=== PATIENT | male | born 1935 | race Caucasian/White ===

== ENCOUNTER 2020-03-05 14:20 | Emergency (ER) | payer OTHER, BC ==
--- NOTE | 2020-03-05 14:28 | PDOC ---
History of Present Illness - History of Present Illness Initial Comments: 84 Y/O male h/o neuropathy, htn, bph, presents to ED for shoulder pain 2/2 mechanical fall last night. Patient reports that last night he was at baseball game, walking down bleachers, when he "lost his footing" and fell, breaking his fall with his left shoulder. He reports that his pain is primarily located in his left shoulder, and he is unable to lift left arm over his head. He denies feeling light headed or dizzy prior to the fall, denies LOC, or hitting head. Reports that he has had two similar falls on these same bleachers over the past year. Denies chest pain, shortness of breath, N/V/D, fever, chills or recent sick contacts. Reports that he tested positive for COVID-19 in september but his symptoms hace since resolved. <Eric Ellsworth - Last Filed: 03/05/20 20:46> <Norman Ray - Last Filed: 03/06/20 10:56> - General Chief Complaint: Injury Stated Complaint: LEFT SHOULDER PAIN Time Seen by Provider: 03/05/20 14:27 Past History <Eric Ellsworth - Last Filed: 03/05/20 20:46> <Norman Ray - Last Filed: 03/06/20 10:56> - Medical History Allergies/Adverse Reactions: Allergies Allergy/AdvReac Type Severity Reaction Status Date / Time No Known Allergies Allergy Verified 03/05/20 14:22 Home Medications: Ambulatory Orders Aspirin [Aspirin EC] 81 mg PO DAILY 03/05/20 Ibuprofen [Advil -] 600 mg PO ONCE 03/05/20 Losartan Potassium 100 mg PO DAILY 03/05/20 Meloxicam [Mobic] 15 mg PO DAILY 03/05/20 Pregabalin 150 mg PO BID 03/05/20 Solifenacin Succinate [Vesicare -] 0 mg PO DAILY 03/05/20 Tamsulosin HCl [Flomax] 0.4 mg PO DAILY 03/05/20 Trospium Chloride [Trospium Chloride ER] 20 mg PO DAILY 03/05/20 Review of Systems - Review of Systems Able to Perform ROS?: Yes Constitutional: Yes: See HPI HEENTM: Yes: See HPI Respiratory: Yes: See HPI Cardiac (ROS): Yes: See HPI ABD/GI: Yes: See HPI : Yes: See HPI Musculoskeletal: Yes: See HPI Integumentary: Yes: See HPI Neurological: Yes: See HPI Endocrine: Yes: See HPI Hematologic/Lymphatic: Yes: See HPI <Eric Ellsworth - Last Filed: 03/05/20 20:46> *Physical Exam - Physical Exam General Appearance: Yes: Nourished, Appropriately Dressed HEENT: positive: EOMI, BETITO, Normal ENT Inspection, Normal Voice, Symmetrical, Other (small 2 cm abrasion w/ dried blood visible over left forehead) Neck: positive: Trachea midline, Normal Thyroid Respiratory/Chest: positive: Lungs Clear, Normal Breath Sounds, Respiratory Distress Cardiovascular: positive: Regular Rhythm, Regular Rate, S1, S2 Gastrointestinal/Abdominal: positive: Normal Bowel Sounds, Flat, Soft Musculoskeletal: positive: Other (Patient is unable to abduct or extend shoulder above 60 degrees. 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 NML intact, Fully Oriented, Alert, Normal Mood/Affect, Normal Response, Motor Strength 5/5 <Eric Ellsworth - Last Filed: 03/05/20 20:46> - Vital Signs Last Vital Signs Temp Pulse Resp BP Pulse Ox 98.1 F 61 18 154/92 98 03/05/20 14:20 03/05/20 14:20 03/05/20 14:20 03/05/20 14:20 03/05/20 14:20 <Norman Ray - Last Filed: 03/06/20 10:56> ED Treatment Course - LABORATORY CBC & Chemistry Diagram: 03/05/20 15:30 03/05/20 15:30 <Eric Ellsworth - Last Filed: 03/05/20 20:46> - LABORATORY CBC & Chemistry Diagram: 03/05/20 15:30 03/05/20 15:30 - ADDITIONAL ORDERS Additional order review: 03/05/20 15:30 RBC 4.04 MCV 96.0 MCHC 33.7 RDW 12.2 MPV 8.8 Neutrophils % 74.3 Lymphocytes % 13.3 Monocytes % 9.4 Eosinophils % 1.9 Basophils % 1.1 - Medications Given in the ED: ED Medications Discontinued Medications Generic Name Dose Route Start Last Admin Trade Name Freq PRN Reason Stop Dose Admin Diphtheria/Tetanus/Acell Pertussis 0.5 ml 03/05/20 15:25 03/05/20 16:20 Boostrix - IM 03/05/20 15:26 0.5 ml .ONCE ONE Administration <Norman Ray - Last Filed: 03/06/20 10:56> Medical Decision Making - Medical Decision Making 84 YOM presents with shoulder pain after mechanical fall last night. - Three total falls in last year - h/o neuropathy in feet, patient reports chronic difficulty with ambulation - vital on arrival wnl - abrasion over forehead on left side visible on exam - unable to abduct or extend left shoulder - Will do xray of left shoulder and humerus + non con CT head + labs - labs and imaging wnl - will dc patient to f/u with neuro, ortho, and primary <Eric Ellsworth - Last Filed: 03/05/20 20:46> Discharge - Discharge Information Problems reviewed: Yes - Admission No <Eric Ellsworth - Last Filed: 03/05/20 20:46> <Norman Ray - Last Filed: 03/06/20 10:56> - Discharge Information Clinical Impression/Diagnosis: Shoulder injury Injury of humerus Qualifiers: Encounter type: initial encounter Laterality: left Qualified Code(s): S49.92XA - Unspecified injury of left shoulder and upper arm, initial encounter Condition: Good Disposition: HOME - Follow up/Referral Referrals: Beau Brian MD [Staff Physician] - Kumar Webb MD, MD [Primary Care Provider] - - Patient Discharge Instructions Patient Printed Discharge Instructions: How to Use a Sling Additional Instructions: Take [id number] Tylenol as directed on package as needed for pain. Ice affected arm 20 minutes on 20 minutes off. Follow-up with Dr. Brian in 2 to 3 days. Return to the ED for any severe worsening symptoms or for any concerns. Please do small range of motion exercises as instructed 3-4 times a day. - Post Discharge Activity
[2020-03-05 14:52] VITALS: BP 154/92; PULSE 61; TEMP 98.1; BMI 30.7
[2020-03-05] MEDS ORDERED: DIPHTH,PERTUSS(ACELL),TET 0.5 ML DISP.SYRIN IM ONE ×2 (15:25→15:41)
[2020-03-05 15:46] LABS: BASO % 1.1 % (0-2.0); EOS % 1.9 % (0-4.5); HEMATOCRIT 38.8 % (35.4-49); HEMOGLOBIN 13.1 GM/dl (11.7-16.9); LYMPH % 13.3 % (8-40); MCH 32.3 pg (25.7-33.7); MCHC 33.7 g/dl (32.0-35.9); MEAN PLT VOLUME 8.8 fl (7.5-11.1); MONO % 9.4 % (3.8-10.2); NEUT % 74.3 % (42.8-82.8); PLATELET COUNT 186 K/MM3 (134-434); RBC 4.04 M/mm3 (4.00-5.60); RDW 12.2 % (11.9-15.9); WHITE BLOOD COUNT 7.2 K/mm3 (4.0-10.8)
[2020-03-05 15:56] LABS: ALBUMIN 3.6 g/dl (3.4-5.0); CALCIUM 8.6 mg/dl (8.5-10); CREATININE 1.1 mg/dl (0.55-1.3); POTASSIUM 3.9 mmol/L (3.5-5.1); TOT PROT 6.4 g/dl (6.4-8.2)
--- NOTE | 2020-03-05 17:57 | PDOC ---
Attending Attestation - Resident Resident Name: Eric Ellsworth - ED Attending Attestation I have performed the following: I have examined & evaluated the patient, The case was reviewed & discussed with the resident, I agree w/resident's findings & plan, Exceptions are as noted - HPI HPI: 03/05/20 17:56 84 years old past medical history significant for hypertension enlarged prostate on an aspirin presents to the ED status post mechanical fall yesterday landed on his shoulder very mild head abrasion has fallen before in the same context unsteady stairs does suffer from neuropathy complaining of discomfort to his left shoulder unable to raise above his head. Pain is persistent constant no exacerbating or alleviating factors - Physicial Exam PE: 03/05/20 17:56 Vitals: Triage Vital signs reviewed General Appearance: No acute distress, well nourished well developed, Head: Small abrasion to the left side of head Eyes: Pupils equal reactive round, extraocular movement intact Neck: Supple; no Nucal rigidity Chest Wall: Nontender Cardiac: Regular rate and rhythym, no murmurs, no rubs, no gallops, Lungs: Clear to auscultation bilateral, good air movement bilaterally, Abdomen: Soft, non distended, normal bowel sounds, non tender to palpation Extremities: Full range of motion to all extremities, no cyanosis, clubbing, or edema Skin: Warm and dry, no rashes or lesions, no rash, no petechiae Psych: Normal mood, normal affect - Medical Decision Making 03/05/20 17:56 84 years old well-appearing no apparent distress with difficulty raising left arm status post mechanical fall given age and history of aspirin use and small abrasion to head will CT head and cervical spine Labs within normal limits EKG performed at 1542 demonstrates normal sinus rhythm no ST elevations no T wave inversions Interpreted by me. Questionable small humerus fracture noted on x-ray may be artifact we will place patient in sling and have patient follow-up with orthopedics in 1 to 2 days Ambulating in the ED with steady gait no complaints at this time Findings, the need for follow-up and strict return instructions discussed with patient. Discharge - Discharge Information Problems reviewed: Yes Clinical Impression/Diagnosis: Injury of humerus Qualifiers: Encounter type: initial encounter Laterality: left Qualified Code(s): S49.92XA - Unspecified injury of left shoulder and upper arm, initial encounter Disposition: HOME - Admission No - Follow up/Referral Referrals: Kumar Webb MD, MD [Primary Care Provider] - Beau Brian MD [Staff Physician] - - Patient Discharge Instructions Patient Printed Discharge Instructions: How to Use a Sling Additional Instructions: Take [id number] Tylenol as directed on package as needed for pain. Ice affected arm 20 minutes on 20 minutes off. Follow-up with Dr. Brian in 2 to 3 days. Return to the ED for any severe worsening symptoms or for any concerns. Please do small range of motion exercises as instructed 3-4 times a day. - Post Discharge Activity
--- NOTE | 2020-03-07 11:42 | EKG ---
Test Reason : Blood Pressure : / mmHG Vent. Rate : 050 BPM Atrial Rate : 050 BPM P-R Int : 184 ms QRS Dur : 084 ms QT Int : 482 ms P-R-T Axes : 000 -15 003 degrees QTc Int : 439 ms SINUS BRADYCARDIA INFERIOR INFARCT , AGE UNDETERMINED ABNORMAL ECG WHEN COMPARED WITH ECG OF 29-NOV-2005 13:41, INFERIOR INFARCT IS NOW PRESENT Confirmed by BRIJESH HARRIS MD ([id number]) on 03/07/2020 11:41:39 AM Referred By: MEDARDO CONCEPCION Confirmed By:BRIJESH HARRIS MD
== END 2020-03-05 18:15 | disposition home or self-care (01) ==
LOC: FER 14:20
PROC: 3E0234Z Introduction of Serum, Toxoid and Vaccine into Muscle, Percutaneous Approach (ICD-10-PCS; principal; 2020-03-05)
DX: S49.92XA Unspecified injury of left shoulder and upper arm, initial encounter (principal)
CPT/HCPCS: 36415; 70450-TC; 71046-TC-FY; 72125-TC; 73030-TC-LT-FY; 73060-TC-LT-FY; 80053; 81003; 84484; 85025; 90715; 93005; 99285-25